=== PATIENT | female | born 2000 | race Caucasian/White ===

== ENCOUNTER 2020-12-23 15:57 | Emergency (ER) | payer BC ==
[~2020-12-23] VITALS: Ht 167.6 cm; Wt 63.5 kg
[2020-12-23] MEDS ORDERED: LORAZEPAM 1 MG TABLET PO ONE (16:30)
--- NOTE | 2020-12-23 16:30 | NUR ---
PATIENT CAME IN TO THE ER C/O WORSENING PANIC ATTACKS, REQUESTING MEDICAL CLEARANCE AND PSYCH EVAL. ON ROOM AIR, BREATHING EVENLY AND UNLABORED. CONNECTED TO THE MONITOR AND PULSE OX. KEPT COMFORTABLE, WILL CONTINUE TO MONITOR ACCORDINGLY.
[2020-12-23] MEDS ORDERED: LORAZEPAM 0.5 MG TABLET ONE (16:42)
[2020-12-23 16:46] LABS: BASOPHILS % (AUTO) 0.3 % (0.0-2.0); EOSINOPHILS % (AUTO) 2.1 % (0.0-6.0); HEMATOCRIT 39 % (33-45); HEMOGLOBIN 12.7 g/dL (11.5-14.8); LYMPHOCYTES # (AUTO) 1.3 K/uL (0.8-4.8); LYMPHOCYTES % (AUTO) 20.1 % (20.0-44.0); MEAN CORPUSCULAR HGB CONC 33 g/dl (31.0-36.0); MEAN CORPUSCULAR VOLUME 92 fL (82-100); MONOCYTES # (AUTO) 0.6 K/uL (0.1-1.30); MONOCYTES % (AUTO) 8.4 % (2.0-12.0); NEUTROPHILS # (AUTO) 4.6 K/uL (1.8-8.9); NEUTROPHILS % (AUTO) 69.1 % (43.0-81.0); PLATELET COUNT (AUTO) 197 K/uL (150-450); WHITE BLOOD COUNT (AUTO) 6.6 K/uL (4.3-11.0)
[2020-12-23 17:01] LABS: CALCIUM, SERUM 9.4 mg/dL (8.5-10.1); CARBON DIOXIDE 26 mmol/L (21-32); CHLORIDE 105 mmol/L (98-107); CREATININE 0.6 mg/dL (0.6-1.3); GLUCOSE 101 mg/dL (74-106); POTASSIUM 3.8 mmol/L (3.5-5.1); SODIUM SERUM 141 mmol/L (136-145); UREA NITROGEN, BLOOD 9 mg/dL (7-18)
[2020-12-23 17:06] LABS: ACETAMINOPHEN < 0 ug/ml (10-30); ALANINE AMINOTRANSFERASE 23 U/L (12-78); ALBUMIN 3.8 g/dL (3.4-5.0); ALCOHOL, BLOOD < 3 mg/dL (0-0); ALKALINE PHOSPHATASE 67 U/L (46-116); ASPARTATE AMINOTRANSFERASE 19 U/L (15-37); BILIRUBIN,DIRECT 0.1 mg/dL (0.0-0.2); BILIRUBIN,TOTAL 0.3 mg/dL (0.2-1.0); TOTAL PROTEIN, SERUM 7.8 g/dL (6.4-8.2)
[2020-12-23 17:27] LABS: BILIRUBIN,URINE Negative (NEGATIVE); COLOR,URINE YELLOW (YELLOW); LEUKOCYTE ESTERASE ,URINE Negative (NEGATIVE); NITRITE, URINE Negative (NEGATIVE); PROTEIN,URINE Negative (NEGATIVE); UGLUCOSE Negative (NEGATIVE); UROBILINOGEN,URINE 0.2 EU/dL (0.2)
--- NOTE | 2020-12-23 18:08 | NUR ---
[facility]
--- NOTE | 2020-12-23 19:50 | NUR ---
[facility] IS STILL AWAITING INSURANCE VERIFICATION, NO CURRENT UPDATE ON TRANSFER STATUS.
--- NOTE | 2020-12-23 23:05 | NUR ---
LYDIA HICKS AT [facility], PT GOT ACCEPTED AT [facility], [address], [address] DR BRIGGS. PLEASE ARRANGE TRANSPORTATION AFTER 0200.
--- NOTE | 2020-12-23 23:10 | NUR ---
CALLED [facility] BLS ETA 0200 HOURS
[2020-12-24 01:26] VITALS: BP 109/64
--- NOTE | 2020-12-24 01:35 | NUR ---
REPORT GIVEN TO NORMAN VELASQUEZ FOR TOM
--- NOTE | 2020-12-24 02:15 | NUR ---
PT TRANSFERED TO [facility].
== END 2020-12-24 02:16 ==
LOC: ER 16:03
DX: F41.9 Anxiety disorder, unspecified (principal); F42.9 Obsessive-compulsive disorder, unspecified; Z20.822 Contact with and (suspected) exposure to COVID-19
CPT/HCPCS: 36415; 80048; 80076; 80143; 80307; 80320; 81003; 84703; 85025; 87426; 99285; C9803; G0480